=== PATIENT | female | born 1975 | race Caucasian/White ===

== ENCOUNTER 2016-12-18 15:10 | Emergency (ER) | payer OTHER ==
[~2016-12-18] VITALS: Ht 170.2 cm; Wt 136.8 kg
[2016-12-18] MEDS ORDERED: ASPIRIN 81 MG TABLET CHEW PO ONE (15:30)
[2016-12-18] MEDS ORDERED: SODIUM CHLORIDE FLUSH 10ML SYR IVF ONE (15:30)
[2016-12-18] MEDS ORDERED: ASPIRIN 81 MG TABLET CHEW ONE (15:33)
[2016-12-18] MEDS ORDERED: LISI1TAB3 PO (15:51)
[2016-12-18 16:03] LABS: HEMATOCRIT 38.2 % (34.6-47.8); HEMOGLOBIN 12.6 g/dL (11.7-16.4); WHITE BLOOD COUNT 11.7 x10^3/uL (3.4-10)
[2016-12-18 16:38] LABS: ASPARTATE AMINO TRANSFERASE 49 U/L (15-37); BLOOD UREA NITROGEN 10 mg/dL (7-18)
[2016-12-18 16:43] LABS: IS PT STATUS REG ER OR PRE ER? YES
[2016-12-18 17:39] VITALS: BP 159/82
== END 2016-12-18 17:42 | disposition home or self-care (01) ==
LOC: ED 17:01
DX: K85.90 Acute pancreatitis without necrosis or infection, unspecified (principal); I10 Essential (primary) hypertension; Z88.0 Allergy status to penicillin
CPT/HCPCS: 36415; 71020; 74020; 80053; 83690; 84484; 85025; 93005; 99285